=== PATIENT | male | born 1950 | race Caucasian/White ===

== ENCOUNTER 2022-01-25 11:54 | Inpatient (IN) | payer MEDICARE ==
[2022-01-25 13:19] VITALS: BMI 34.0
[2022-01-25] MEDS ORDERED: tiZANidine HCl 4 MG TAB PO PRN (13:57)
[2022-01-25] MEDS ORDERED: Docusate 100 MG CAP PO PRN (13:57)
[2022-01-25] MEDS: hydrALAZINE 20 MG/ML VIAL SLOW IVP PRN (17:11)
[2022-01-25] MEDS: Atorvastatin Calcium 40 MG TAB PO SCH (19:47)
[2022-01-25] MEDS: HYDROcodone/Acetaminophen 10/325 mg Tablet PO PRN (19:47)
[2022-01-26] MEDS: HYDROcodone/Acetaminophen 10/325 mg Tablet PO PRN ×3 (03:00→20:43)
[2022-01-26] MEDS: Fish Oil 1,000 MG CAP PO SCH (08:17)
[2022-01-26] MEDS: Ascorbic Acid 500 mg Chewable Tablet PO SCH (08:17)
[2022-01-26] MEDS: Aspirin Chewable 81 MG TAB PO SCH (08:17)
[2022-01-26] MEDS: Zinc Gluconate 50 MG TAB PO SCH (08:17)
[2022-01-26] MEDS: hydrALAZINE 20 MG/ML VIAL SLOW IVP PRN (08:18)
[2022-01-26] MEDS: Multivitamin W/ Minerals 1 TAB PO SCH (08:18)
[2022-01-26] MEDS: Cholecalciferol 1,000 UNITS (25 MCG) TAB PO SCH (08:18)
[2022-01-26] MEDS ORDERED: CHONDROITIN PO SCH (09:00)
[2022-01-26] MEDS ORDERED: [UNRECOGNIZED DRUG - OTHER] PO SCH (09:00)
[2022-01-26] MEDS ORDERED: GLUCOSAMINE PO SCH (09:00)
[2022-01-26] MEDS ORDERED: MANG PO SCH (09:00)
[2022-01-26] MEDS: Carvedilol 6.25 MG TAB PO SCH (18:01)
[2022-01-26] MEDS: Atorvastatin Calcium 40 MG TAB PO SCH (20:42)
[2022-01-27] MEDS: HYDROcodone/Acetaminophen 10/325 mg Tablet PO PRN ×2 (02:57→06:12)
[2022-01-27] MEDS: Carvedilol 6.25 MG TAB PO SCH (06:31)
[2022-01-27] MEDS: Aspirin Chewable 81 MG TAB PO SCH (06:32)
[2022-01-27] MEDS: Multivitamin W/ Minerals 1 TAB PO SCH (08:00)
[2022-01-27] MEDS: Ascorbic Acid 500 mg Chewable Tablet PO SCH (08:00)
[2022-01-27] MEDS: Fish Oil 1,000 MG CAP PO SCH (08:00)
[2022-01-27] MEDS: Cholecalciferol 1,000 UNITS (25 MCG) TAB PO SCH (08:00)
[2022-01-27] MEDS: Zinc Gluconate 50 MG TAB PO SCH (08:01)
[2022-01-27 09:01] VITALS: BP 181/85; TEMP 98.3
[2022-01-27] MEDS ORDERED: Bupivacaine 0.25% HCL 30 ML VIAL ONE (09:57)
[2022-01-27] MEDS ORDERED: SUGAMMADEX SODIUM 200 MG/2 ML VIAL ONE (10:14)
[2022-01-27] MEDS ORDERED: Propofol 1,000 MG/100 ML VIAL IV ONE (10:15)
[2022-01-27] MEDS ORDERED: HYDROmorphone 0.5 MG/0.5 ML SYRINGE ONE (10:15)
[2022-01-27] MEDS ORDERED: EPINEPHrine 1 MG/ML AMP ONE (11:20)
[2022-01-27] MEDS ORDERED: CEFAZOLIN 2 GM VIAL ONE (11:23)
== END 2022-01-27 15:39 | disposition home or self-care (01) | DRG 520 ==
LOC: CSHERS 11:54 → CSHTELE 12:14
PROVIDERS: ADMIT Orthopaedic Surgery; ATTEND Orthopaedic Surgery
PROC: 0SB20ZZ Excision of Lumbar Vertebral Disc, Open Approach (ICD-10-PCS; principal; 2022-01-27)
PROC: 00NY0ZZ Release Lumbar Spinal Cord, Open Approach (ICD-10-PCS; 2022-01-27)
DX: M51.16 Intervertebral disc disorders with radiculopathy, lumbar region (principal); Z20.822 Contact with and (suspected) exposure to COVID-19; I25.10 Atherosclerotic heart disease of native coronary artery without angina pectoris; I10 Essential (primary) hypertension; E66.9 Obesity, unspecified; E78.5 Hyperlipidemia, unspecified; Z87.891 Personal history of nicotine dependence; Z79.899 Other long term (current) drug therapy; Z95.1 Presence of aortocoronary bypass graft; Z79.82 Long term (current) use of aspirin; Z68.34 Body mass index [BMI] 34.0-34.9, adult
CPT/HCPCS: 72100; 93005; 93010; C1776; C1889; J0171; J0360; J1100; J1170; J2405; J2704; S0020; U0003; U0005